=== PATIENT | male | born 1965 | race Two or more races ===

== ENCOUNTER 2023-12-27 08:33 | Emergency (ER) | payer OTHER ==
[~2023-12-27] VITALS: Ht 175.3 cm; Wt 81.6 kg
[2023-12-27] MEDS ORDERED: GABAPENTIN300 M2 PO (09:26)
[2023-12-27] MEDS ORDERED: LIPITOR20 MG PO (09:27)
[2023-12-27] MEDS ORDERED: FOLIC ACID1 MG PO (09:27)
[2023-12-27] MEDS ORDERED: VASOTEC5 MG PO (09:27)
[2023-12-27] MEDS ORDERED: FENOFIBRATE150 MG (09:28)
[2023-12-27] MEDS ORDERED: ASPIRIN81 MG PO (09:28)
[2023-12-27] MEDS ORDERED: KETOROLAC TROMETHAMINE 30 MG VIAL IU ONE (10:30)
[2023-12-27 10:56] LABS: HEMATOCRIT 48.1 % (39.0-48.0); HEMOGLOBIN 16.3 g/dL (13-16.00); MEAN CELL VOLUME 94.5 fL (80.0-100.00); MEAN CORPUSCULAR HGB CONC 33.9 g/dl (32.0-36.0); PLATELET COUNT 251 K/uL (150-450); RED BLOOD COUNT 5.08 M/uL (4.00-6.00); RED CELL DISTRIBUTION WIDTH 13.2 % (11.5-14.5)
[2023-12-27 11:27] LABS: ALBUMIN 3.8 gm/dL (3.4-5.0); BILIRUBIN TOTAL 0.56 mg/dL (0.3-1.2); CALCIUM 9.6 mg/dL (8.5-10.1); CREATININE SERUM 1.02 mg/dL (0.70-1.30); GFR 74.5; GLOBULINA 3.7 G/DL (2.4-3.5); POTASSIUM 4.14 mEq/L (3.5-5.1); TOTAL PROTEIN 7.5 gm/dL (6.4-8.2)
[2023-12-27 11:58] LABS: URINE APPEARANCE Clear; URINE BILIRRUBIN Negative (NEGATIVE); URINE BLOOD Negative; URINE COLOR Yellow; URINE GLUCOSE Negative (NEGATIVE); URINE LEUKOCYTE Trace; URINE NITRATE Negative; URINE PROTEIN Negative (NEGATIVE); URINE UROBILINOGEN 0.2 E.U./dl
[2023-12-27 12:00] LABS: URINE WBC 6.4 uL (0.0-23.2)
[2023-12-27 12:02] LABS: URINE EPITHELIAL CELLS 0.7 uL (0.0-38.8)
[2023-12-27 12:53] LABS: ABG PH 7.386 (7.35-7.45); ABG pCO2 45.2 mmHg (35-45); BICARBONATE 26.5 mmol/l (23-25); SaO2 96.9 %; Tco2 27.9 mmol/l
[2023-12-27 12:54] LABS: allen test SATISFACTORY; o2 24 %; puncture site RADIAL RIGHT
== END 2023-12-27 12:36 | disposition home or self-care (01) ==
LOC: ER 08:33
PROVIDERS: General Practice
DX: N39.0 Urinary tract infection, site not specified (principal); R07.89 Other chest pain; I10 Essential (primary) hypertension; Z72.0 Tobacco use; Z86.73 Personal history of transient ischemic attack (TIA), and cerebral infarction without residual deficits

== ENCOUNTER 2024-09-15 18:49 | Emergency (ER) | payer OTHER ==
[~2024-09-15] VITALS: Ht 152.4 cm; Wt 81.2 kg
[~2024-09-15 18:49] MED LIST: ASPIRIN81 MG PO; FENOFIBRATE150 MG; FOLIC ACID1 MG PO; GABAPENTIN300 M2 PO; LIPITOR20 MG PO; VASOTEC5 MG PO
[2024-09-15 21:00] LABS: HEMATOCRIT 47.2 % (39.0-48.0); HEMOGLOBIN 16.2 g/dL (13-16.00); MEAN CELL VOLUME 93.5 fL (80.0-100.00); MEAN CORPUSCULAR HEMOGLOBIN 32.2 pg (27.00-32.0); MEAN CORPUSCULAR HGB CONC 34.4 g/dl (32.0-36.0); PLATELET COUNT 256 K/uL (150-450); RED BLOOD COUNT 5.05 M/uL (4.00-6.00); RED CELL DISTRIBUTION WIDTH 13.4 % (11.5-14.5)
[2024-09-15 21:38] LABS: ALBUMIN 3.9 gm/dL (3.4-5.0); BILIRUBIN TOTAL 0.45 mg/dL (0.3-1.2); CALCIUM 9.5 mg/dL (8.5-10.1); CREATININE SERUM 1.03 mg/dL (0.70-1.30); GFR 73.42; GLOBULINA 3.6 G/DL (2.4-3.5); POTASSIUM 4.26 mEq/L (3.5-5.1); TOTAL PROTEIN 7.5 gm/dL (6.4-8.2)
[2024-09-15 22:21] LABS: PH,URINE 6.5 (5.0-8.0); URINE APPEARANCE Clear; URINE BILIRRUBIN Negative (NEGATIVE); URINE BLOOD Negative; URINE COLOR Yellow; URINE GLUCOSE Negative (NEGATIVE); URINE KETONE Negative (NEGATIVE); URINE LEUKOCYTE Negative; URINE NITRATE Negative; URINE PROTEIN Negative (NEGATIVE); URINE UROBILINOGEN 0.2 E.U./dl
[2024-09-15 22:25] LABS: URINE BACTERIA 99.1 uL (0.0-1933); URINE EPITHELIAL CELLS 4.5 uL (0.0-38.8); URINE RBC 5.7 uL (0.0-20.8); URINE WBC 4.5 uL (0.0-23.2)
[2024-09-15 22:26] LABS: URINE CAST 0.14 uL (0.0-1.40)
== END 2024-09-16 00:56 | disposition home or self-care (01) ==
LOC: ER 18:52
PROVIDERS: Emergency Medicine
DX: B34.9 Viral infection, unspecified (principal); R53.1 Weakness; R42 Dizziness and giddiness; Z20.822 Contact with and (suspected) exposure to COVID-19; I10 Essential (primary) hypertension